=== PATIENT | female | born 2000 | race Two or more races ===

== ENCOUNTER 2023-01-22 18:33 | Emergency (ER) | payer BC ==
[~2023-01-22] VITALS: Ht 172.7 cm; Wt 68.0 kg
[2023-01-22] MEDS ORDERED: FAMOTIDINE (20 MG) 20 MG TABLET ONE (18:56)
[2023-01-22] MEDS ORDERED: FAMOTIDINE (20 MG) 20 MG TABLET PO ONE (19:00)
[2023-01-22] MEDS ORDERED: FAMO-131 PO (20:19)
[2023-01-22 20:38] VITALS: BP 127/82; TEMP 98; O2SAT 99
== END 2023-01-22 20:38 | disposition home or self-care (01) ==
LOC: ER 18:41
DX: R07.89 Other chest pain (principal)
CPT/HCPCS: 71045-TC